=== PATIENT | female | born 1940 | race Caucasian/White ===

== ENCOUNTER 2016-08-20 20:15 | Emergency (ER) | payer BC ==
[2016-08-20 20:50] LABS: URINE APPEARANCE CLEAR; URINE BILIRUBIN NEGATIVE (NEGATIVE); URINE BLOOD LARGE (NEGATIVE); URINE COLOR YELLOW; URINE GLUCOSE (UA) NEGATIVE (NEGATIVE); URINE KETONE TRACE (NEGATIVE); URINE LEUKOCYTE ESTERASE LARGE (NEGATIVE); URINE NITRITE NEGATIVE (NEGATIVE)
--- NOTE | 2016-08-20 20:52 | Emergency Department Record ---
History of Present Illness - General Chief complaint: Female Urogenital Problem Stated complaint: UTI Time Seen by Provider: 08/20/16 20:28 Source: Patient Mode of Arrival: Ambulatory Limitations: No limitations - History of Present Illness Initial comments: 76 yo female presents to ED with a 2-day history of urinary frequency and urgency symptoms. Patient denies fevers, chills, nausea, or vomiting symptoms. Patient denies history of previous symptoms, but believes she may have a UTI. MD Complaint: Dysuria Onset/Timin -: Days(s) Location: Perineum Severity: Moderate Quality: Burning Consistency: Intermittent Improves with: None Worsens with: Urination Associated Symptoms: Dysuria - Related Data Home Medications Medication Instructions Recorded Confirmed Last Taken Bupropion HCl [Bupropion HCl Sr] 150 mg PO DAILY 11/20/15 08/20/16 08/20/16 Fosinopril Sodium [Monopril] 20 mg PO DAILY 11/20/15 08/20/16 08/20/16 Metoprolol Succinate [Toprol Xl] 100 mg PO DAILY 11/20/15 08/20/16 08/20/16 Oxybutynin Chloride [Ditropan] 5 mg PO TID 11/20/15 08/20/16 08/20/16 Simvastatin [Zocor] 40 mg PO DAILY 11/20/15 08/20/16 08/20/16 Rivaroxaban [Xarelto] 20 mg PO DAILY 08/20/16 08/20/16 08/20/16 Previous Rx's Medication Instructions Recorded Nitrofurantoin Catahoula [Macrobid] 100 mg PO BID #13 capsule 08/20/16 Phenazopyridine HCl [Pyridium] 200 mg PO TID #5 tab 08/20/16 Allergies Allergy/AdvReac Type Severity Reaction Status Date / Time No Known Drug Allergies Allergy Verified 11/20/15 12:04 Travel Screening - Travel/Exposure Within Last 30 Days Have you traveled within the last 30 days?: No - Travel Symptoms Symptom Screening: None Review of Systems Constitutional: Denies: Chills, Fever, Malaise, Night sweats Eyes: Denies: Eye discharge, Eye pain ENT: Denies: Congestion, Ear pain Respiratory: Denies: Cough, Dyspnea Cardiovascular: Denies: Chest pain, Dyspnea on exertion Endocrine: Denies: Fatigue, Heat or cold intolerance Gastrointestinal: Denies: Abdominal pain, Nausea, Vomiting Genitourinary: Reports: Dysuria, Frequency, Urgency. Denies: Retention Musculoskeletal: Denies: Arthralgia, Gout Skin: Denies: Bruising, Change in color Neurological: Denies: Abnormal gait, Confusion, Headache, Seizure Psychiatric: Denies: Anxiety Hematological/Lymphatic: Denies: Anemia, Blood Clots Past Medical History - SOCIAL HISTORY Smoking Status: Former smoker - RESPIRATORY Hx Respiratory Disorders: Yes Hx Pulmonary Embolism: Yes - CARDIOVASCULAR Hx Cardio Disorders: Yes Hx Deep Vein Thrombosis: Yes Hx Heart Attack: Yes Hx Hypertension: Yes - NEURO Hx Neuro Disorders: No - GI Hx GI Disorders: Yes Hx Reflux: Yes - Hx Genitourinary Disorders: No - ENDOCRINE Hx Endocrine Disorders: No - MUSCULOSKELETAL Hx Musculoskeletal Disorders: No - PSYCH Hx Psych Problems: No - HEMATOLOGY/ONCOLOGY Hx Hematology/Oncology Disorders: No Family Medical History Any Significant Family History?: Yes Hx Heart Disease: Mother, Brother/Sister Hx Resp Disorders: Father, Brother/Sister Physical Exam - General General Appearance: Alert, Oriented x3, Cooperative, No acute distress Limitations: No limitations - Head Head exam: Atraumatic, Normocephalic, Normal inspection Head exam detail: negative: Abrasion, Contusion, Luna's sign, General tenderness, Hematoma, Laceration - Eye Eye exam: Normal appearance. negative: Conjunctival injection, Periorbital swelling, Periorbital tenderness, Scleral icterus - ENT Ear exam: negative: Auricular hematoma, Auricular trauma Nasal Exam: negative: Active bleeding, Discharge, Dried blood, Foreign body Mouth exam: negative: Drooling, Laceration, Muffled voice, Tongue elevation - Neck Neck exam: Normal inspection. negative: Meningismus, Tenderness - Respiratory Respiratory exam: Normal lung sounds bilaterally. negative: Rales, Respiratory distress, Rhonchi, Stridor - Cardiovascular Cardiovascular Exam: Regular rate, Normal rhythm, Normal heart sounds - GI/Abdominal GI/Abdominal exam: Soft. negative: Rebound, Rigid, Tenderness - Rectal Rectal exam: Deferred - exam: Deferred - Extremities Extremities exam: Normal inspection. negative: Calf tenderness, Pedal edema, Tenderness - Back Back exam: Denies: CVA tenderness (R), CVA tenderness (L) - Neurological Neurological exam: Alert, Normal gait, Oriented X3 - Psychiatric Psychiatric exam: Normal affect, Normal mood - Skin Skin exam: Normal color. negative: Abrasion Type of lesion: negative: abrasion Course Vital Signs 08/20/16 20:32 Temperature 97.4 F L Pulse Rate 67 Respiratory 18 Rate Blood Pressure 135/82 Pulse Ox 91 L - Reevaluation(s) Reevaluation #1: 08/20/16 21:02 UA reviewed and appears c/w infection. Patient has no clinical symptoms indicative of ureteral calculi complicating her UTI sympotms. Patient is otherwise well appearing and appears stable for discharge with treatment for UTI. Disposition Disposition: Discharge Clinical Impression: UTI (urinary tract infection) Qualifiers: Urinary tract infection type: acute cystitis Hematuria presence: with hematuria Qualified Code(s): N30.01 - Acute cystitis with hematuria Disposition: Home, Self-Care Condition: (2) Stable Instructions: Urinary Tract Infection in Women (ED) Additional Instructions: Return to ED if your symptoms worsen or if you have any concerns. Macrobid and Pyridium as directed. Follow-up with your family doctor in 1-3 days as directed. Prescriptions: Nitrofurantoin Catahoula [Macrobid] 100 mg PO BID #13 capsule Phenazopyridine HCl [Pyridium] 200 mg PO TID #5 tab Forms: Patient Portal Access Time of Disposition: 21:05
[2016-08-20 20:53] LABS: URINE PROTEIN 300 mg/dL (NEGATIVE)
[2016-08-20 21:01] LABS: URINE BACTERIA 3+; URINE EPITHELIAL CELLS 0 - 2 (FEW)
[2016-08-20] MEDS ORDERED: NITROFURANTOIN MONO 100 MG CAPSULE PO ONE (21:05)
[2016-08-20] MEDS ORDERED: PHENAZOPYRIDINE HCL 95 MG TABLET PO ONE (21:05)
== END 2016-08-20 21:26 | disposition home or self-care (01) ==
LOC: ER 20:15
DX: N30.01 Acute cystitis with hematuria (principal); R30.0 Dysuria; I10 Essential (primary) hypertension; I25.2 Old myocardial infarction; Z87.891 Personal history of nicotine dependence
CPT/HCPCS: 81001; 99283

== ENCOUNTER 2018-02-24 18:23 | Emergency (ER) | payer BC, MEDICARE ==
--- NOTE | 2018-02-24 18:43 | Emergency Department Record ---
History of Present Illness - General Chief Complaint: Slurred speech Stated Complaint: SLURRED SPEACH Time Seen by Provider: 02/24/18 18:28 Source: Patient Mode of Arrival: Stretcher Limitations: No limitations - History of Present Illness Initial Comments: 77yo female presents by EMS with about 30 minutes of slurring of her speech. She was reportedly talking on the phone with a friend at time. The symptoms completely resolved. She was noted to be 88% on room air. She states she has been short of breath with activity over the last month. She has had some left leg pain as well. No swelling. She denies any chest pain, cough or fever. She denies any COPD or asthma. She did have a PE 2 years ago. She has been off her medication due to an insurance issue the last month. PCP is [facility] in [place]. She had an IN about 10 years ago with one stent. 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 Onset/Timin -: Week(s) Location: Speech Place: Home Quality: Other Improves With: None Worsens With: None On Anticoagulants: No (Off her Xarelto over a month) Associated Symptoms: Denies other symptoms Treatments Prior to Arrival: None - [place] Coma Scale Eye Response: (4) Open spontaneously Motor Response: (6) Obeys commands Verbal Response: (5) Oriented [place] Total: 15 - Related Data Home Medications: Home Medications Medication Instructions Recorded Confirmed Last Taken Donepezil HCl 5 mg PO DAILY 02/24/18 02/24/18 Unknown Allergies/Adverse Reactions: Allergies Allergy/AdvReac Type Severity Reaction Status Date / Time No Known Drug Allergies Allergy Verified 02/24/18 18:40 Travel Screening - Travel/Exposure Within Last 30 Days Have you traveled within the last 30 days?: No - Travel/Exposure Within Last Year Have you traveled outside the [place] in the last year?: No - Additonal Travel Details Have you been exposed to anyone with a communicable illness?: No - Travel Symptoms Symptom Screening: None Review of Systems Constitutional: Denies: Chills, Fever, Malaise, Weakness Eyes: Denies: Eye discharge, Eye pain ENT: Denies: Congestion, Throat pain Respiratory: Reports: Dyspnea. Denies: Cough, Wheezes Cardiovascular: Reports: Dyspnea on exertion. Denies: Chest pain, Edema, Palpitations, Syncope Endocrine: Denies: Fatigue Gastrointestinal: Denies: Abdominal pain, Diarrhea, Nausea, Vomiting Genitourinary: Denies: Dysuria, Urgency Musculoskeletal: Reports: As per HPI, Myalgia. Denies: Arthralgia, Back pain, Joint swelling Skin: Denies: Bruising, Change in color, Rash Neurological: Denies: Headache, Numbness, Weakness Psychiatric: Denies: Anxiety Hematological/Lymphatic: Reports: As per HPI, Blood Clots. Denies: Easy bleeding, Easy bruising Past Medical History - SOCIAL HISTORY Smoking Status: Former smoker Alcohol Use: None Drug Use: None - RESPIRATORY Hx Respiratory Disorders: Yes Hx Pulmonary Embolism: Yes - CARDIOVASCULAR Hx Cardio Disorders: Yes Hx Deep Vein Thrombosis: Yes Hx Heart Attack: Yes Hx Hypertension: Yes - NEURO Hx Neuro Disorders: No - GI Hx GI Disorders: Yes Hx Reflux: Yes - Hx Genitourinary Disorders: No - ENDOCRINE Hx Endocrine Disorders: No - MUSCULOSKELETAL Hx Musculoskeletal Disorders: No - PSYCH Hx Psych Problems: No - HEMATOLOGY/ONCOLOGY Hx Hematology/Oncology Disorders: No Family Medical History Any Significant Family History?: No Hx Heart Disease: Mother, Brother/Sister Hx Resp Disorders: Father, Brother/Sister Physical Exam - General General Appearance: Alert, Oriented x3, Cooperative, No acute distress Limitations: No limitations - Head Head exam: Atraumatic, Normal inspection - Eye Eye exam: Normal appearance, PERRL, EOMI. negative: Conjunctival injection, Scleral icterus - ENT ENT exam: Normal exam, Mucous membranes moist Ear exam: Normal external inspection Nasal Exam: Normal inspection Mouth exam: Normal external inspection Teeth exam: Normal inspection Throat exam: Normal inspection - Neck Neck exam: Normal inspection, Full ROM. negative: Tenderness - Respiratory Respiratory exam: Rhonchi (mild in the bases, ). negative: Accessory muscle use , Decreased breath sounds, Prolonged expiratory, Rales, Respiratory distress, Wheezes - Cardiovascular Cardiovascular Exam: Regular rate, Normal rhythm, Normal heart sounds. negative : Tachycardia Peripheral Pulses: 2+: Radial (R), Radial (L) - GI/Abdominal GI/Abdominal exam: Soft. negative: Tenderness - Rectal Rectal exam: Deferred - exam: Deferred - Extremities Extremities exam: Normal inspection, Full ROM, Normal capillary refill, Tenderness (left medial calf) - Back Back exam: Reports: Normal inspection, Full ROM. Denies: Muscle spasm, Rash noted, Tenderness - Neurological Neurological exam: Alert, Normal gait, Oriented X3, Reflexes normal - Psychiatric Psychiatric exam: Normal affect, Normal mood - Skin Skin exam: Dry, Intact, Normal color, Warm Stroke Assessment - NIH Stroke Scale 1a. Level of Consciousness: (0) Alert 1b. LOC Questions: (0) Answers Correctly 1c. LOC Commands: (0) Performs Tasks Correctly 2. Best Gaze: (0) Normal 3. Visual: (0) No Visual Loss 4. Facial Palsy: (0) Normal Symmetrical Movement 5a. Motor Arm Left: (0) No Drift 5b. Motor Arm Right: (0) No Drift 6a. Motor Leg Left: (0) No Drift 6b. Motor Leg Right: (0) No Drift 7. Limb Ataxia: (0) Absent 8. Sensory: (0) Normal 9. Best Language: (0) No Aphasia 10. Dysarthria: (0) Normal 11. Extinction/Inattention: (0) No Abnormality NIH Stoke Scale Total: 0 Course Vital Signs 02/24/18 18:24 Temperature 98.7 F Pulse Rate 98 H Respiratory 20 Rate Blood Pressure 141/82 Pulse Ox 88 L - Reevaluation(s) Reevaluation #1: Hypoxia noted on arrival NIH at arrival 0 02/24/18 18:44 02/24/18 18:47 EKG 1838 Sinus Rhythm Rate 92 Intervals Qtc [address] Inverted T waves V1-V6 02/24/18 19:23 Troponin indeterminant at 0.023 BNP 6968 CR 1.0 02/24/18 20:[address] scan was negative for acute process 02/24/18 20:13 The son notified my the patient is now having trouble with speech. On exam she has dysarthria with difficulty pronouncing words No drift or weakness of the arms or legs. [facility] called for Stroke Service 02/24/18 20:[address] Moreno of Stroke After review with the son He checked his phone He was called at 5:30pm. His neighbor can not confirm onset time putting her out of the window CTA pending. 02/24/18 20:30 Dr Moore of the ED accepts ED to ED 02/24/18 20:32 CT large bilateral PE's Central On recheck the speech has cleared. 02/24/18 20:35 I again discussed the CT findings with Dr Moreno. Heparin in this setting acceptable and recommended. NIH no 0 Medical Decision Making - Management Options MDM Management: Additional Work-up Planned (e.g. ADM/Transfer/OP Study) - Data Complexity MDM Data: Labs Ordered and/or Reviewed, X-Ray Ordered and/or Reviewed, EKG Ordered and/or Reviewed, Independent Visualization of Image, Tracing, or Specimen, Discussion of Test Results With Performing Physician, Decision to Obtain Old Record, Review and Summary of Old Record Discussed - Lab Data Result diagrams: 02/24/18 18:09 02/24/18 18:09 - EKG Data -: EKG Interpreted by Me Critical Care Time Critical Care Time: Yes Total Critical Care Time: 125 Disposition Disposition: Transfer Clinical Impression: TIA (transient ischemic attack), Pulmonary embolism Disposition: Acute Care Hospital Transfer Transfer To: [facility] Reason For Transfer: TIA, Pulmonary Emboli Accepting Physician: Oscar Moreno Time Discussed w/Accepting Physician: 20:35 Condition: (2) Stable Forms: Patient Portal Access Time of Disposition: 20:35 Quality - Quality Measures Quality Measures: N/A - Blood Pressure Screening Does Patient Have Any of the Following: No Blood Pressure Classification: Pre-Hypertensive BP Reading Systolic Measurement: 141 Diastolic Measurement: 82 Screening for High Blood Pressure: < Pre-Hypertensive BP, F/U Documented > [ G8950] Pre-Hypertensive Follow-up Interventions: Referral to alternative/primary care provider.
[2018-02-24 18:50] LABS: BASO % 0.4 % (0-6); EOS % 1.5 % (0-6); GRAN % 69.2 % (47-80); HEMATOCRIT 47.9 % (35.0-47.0); HEMOGLOBIN 15.8 gm/dl (11.6-16.0); LYMPH % 19.2 % (16-45); MEAN CELL VOLUME 88.5 fl (81-97); MEAN CORPUSCULAR HEMOGLOBIN 29.2 pg (27-33); MEAN PLATELET VOLUME 9.7 fl (7.4-10.4); MONO % 9.7 % (0-9); PLATELET COUNT 260 K/uL (130-400); RED BLOOD COUNT 5.41 M/uL (3.80-5.40); RED CELL DISTRIBUTION WIDTH 14.9 % (11.5-14.5); WHITE BLOOD COUNT W/O DIFF 9.2 K/uL (4.2-12.2)
[2018-02-24 19:03] LABS: INR 1.1; PARTIAL THROMBOPLASTIN TIME 26.7 SECONDS (24.5-39.1)
[2018-02-24 19:05] LABS: BILIRUBIN,TOTAL 0.5 mg/dL (0.2-1.0)
[2018-02-24 19:06] LABS: TOTAL PROTEIN 7.8 g/dL (6.6-8.7)
[2018-02-24 19:10] LABS: ALB/GLOB RATIO 1.1 (1.1-1.8)
[2018-02-24 19:22] LABS: URINE APPEARANCE CLEAR; URINE BILIRUBIN SMALL (NEGATIVE); URINE BLOOD NEGATIVE (NEGATIVE); URINE COLOR YELLOW; URINE GLUCOSE (UA) NEGATIVE (NEGATIVE); URINE KETONE TRACE (NEGATIVE); URINE LEUKOCYTE ESTERASE SMALL (NEGATIVE); URINE NITRITE NEGATIVE (NEGATIVE)
[2018-02-24 19:32] LABS: URINE RBC 0 - 2 (NONE SEEN); URINE WBC 16 - 20 (0-2/hpf)
[2018-02-24 19:33] LABS: URINE BACTERIA 1+
[2018-02-24] MEDS: HEPARIN SODIUM 1000 UNIT/1 ML 10ML VIAL IVP ONE (20:40)
[2018-02-24] MEDS: HEPARIN SODIUM/D5W 25,000 UNITS/500 ML BAG IV SCH (20:41)
[2018-02-24] MEDS: 0.9 % SODIUM CHLORIDE 1,000 ML BAG IV ONE (20:41)
--- NOTE | 2018-02-26 23:13 | CT SCAN REPORT ---
EXAM: CT SCAN HEAD WO CONTRAST HISTORY: MENTAL STATUS CHANGE. TECHNIQUE: Sequential axial images were obtained from the foramen magnum to the vertex without contrast administration. FINDINGS: The brain volume is normal. No large territorial infarct, hemorrhage , mass effect, or midline shift. No extraaxial fluid collection. The orbits, paranasal sinuses and mastoid air cells are normal. IMPRESSION: NO ACUTE INTRACRANIAL ABNORMALITY IS APPRECIATED. JOB NUMBER: [id number] MTDD
--- NOTE | 2018-02-26 23:21 | CT ANGIOGRAM REPORT ---
EXAM: CT ANGIOGRAM CHEST CTA w contrast HISTORY: DIFFICULTY IN BREATHING, SLURRED SPEECH. TECHNIQUE: CTA of the chest was performed after intravenous administration of 80 mL of Omnipaque-350 contrast material. Sagittal and coronal MIP images were performed on an independent workstation. FINDINGS: Large volume bilateral saddle emboli are present. Thoracic aorta appears normal. There is underlying interstitial lung disease with fibrosis. Cardiomegaly without pericardial effusion. The visualized upper abdominal structures are normal. IMPRESSION: 1. LARGE BILATERAL OCCLUSIVE SADDLE EMBOLI. 2. CARDIOMEGALY WITHOUT PERICARDIAL EFFUSION. 3. UNDERLYING INTERSTITIAL LUNG DISEASE WITH FIBROSIS. SMALL LEFT PLEURAL EFFUSION. JOB NUMBER: [id number] MTDD
== END 2018-02-24 20:55 | disposition short-term general hospital (02) ==
LOC: ER 18:23
DX: G45.9 Transient cerebral ischemic attack, unspecified (principal); I26.99 Other pulmonary embolism without acute cor pulmonale; R06.02 Shortness of breath; I10 Essential (primary) hypertension; I25.2 Old myocardial infarction; Z87.891 Personal history of nicotine dependence; Y92.009 Unspecified place in unspecified non-institutional (private) residence as the place of occurrence of the external cause; Z86.711 Personal history of pulmonary embolism
CPT/HCPCS: 99291 ×2; 96365; 96375; 85025; 85730; 85610; 80053; 81001; 84484; 83880; 71275; 70450; 93005; 93010; Q9967; J7030

== ENCOUNTER 2018-03-03 15:20 | Inpatient (IN) | payer MEDICARE ==
--- NOTE | 2018-03-03 15:47 | Emergency Department Record ---
History of Present Illness - General Chief Complaint: General Stated Complaint: NEEDS HER BLOOD CHECKED Time Seen by Provider: 03/03/18 15:24 Source: Patient Mode of Arrival: Ambulatory Limitations: No limitations - History of Present Illness Initial comments: The patient is here due to having her blood drawn today by a visiting nurse and being told to go to the ER due to her INR being 8. She was diagnosed with a PE 7 days ago and was discharged from the hospital 2 days ago on Coumadin. She is not sure of the dose. The patient denies any CP, SOB, ISA, or sweating. She does have a hx of COPD and her RA biox runs from 89-92% on room air. Onset/Timin -: Days(s) - [place] Coma Scale Eye Response: (4) Open spontaneously Motor Response: (6) Obeys commands - Related Data Allergies Allergy/AdvReac Type Severity Reaction Status Date / Time No Known Drug Allergies Allergy Verified 03/03/18 15:32 Travel Screening - Travel/Exposure Within Last 30 Days Have you traveled within the last 30 days?: No Review of Systems Constitutional: Denies: Chills, Fever Eyes: Denies: Eye discharge ENT: Denies: Congestion Respiratory: Denies: Cough, Dyspnea Past Medical History - SOCIAL HISTORY Smoking Status: Former smoker Alcohol Use: None Drug Use: None - RESPIRATORY Hx Respiratory Disorders: Yes Hx COPD: Yes Hx Pulmonary Embolism: Yes - CARDIOVASCULAR Hx Cardio Disorders: Yes Hx Deep Vein Thrombosis: Yes Hx Heart Attack: Yes Hx Hypertension: Yes - NEURO Hx Neuro Disorders: No - GI Hx GI Disorders: Yes Hx Reflux: Yes - Hx Genitourinary Disorders: No - ENDOCRINE Hx Endocrine Disorders: No - MUSCULOSKELETAL Hx Musculoskeletal Disorders: No - PSYCH Hx Psych Problems: No - HEMATOLOGY/ONCOLOGY Hx Hematology/Oncology Disorders: No Family Medical History Any Significant Family History?: Yes Hx Heart Disease: Mother, Brother/Sister Hx Resp Disorders: Father, Brother/Sister Physical Exam - General General Appearance: Alert, Oriented x3, Cooperative, No acute distress - Head Head exam: Atraumatic, Normocephalic, Normal inspection - Eye Eye exam: Normal appearance, PERRL - Neck Neck exam: Normal inspection, Full ROM. negative: Tenderness - Respiratory Respiratory exam: Normal lung sounds bilaterally. negative: Respiratory distress - Cardiovascular Cardiovascular Exam: Regular rate, Normal rhythm, Normal heart sounds - GI/Abdominal GI/Abdominal exam: Soft, Normal bowel sounds. negative: Tenderness - Extremities Extremities exam: Normal inspection, Full ROM, Normal capillary refill. negative: Tenderness - Neurological Neurological exam: Alert. negative: Motor sensory deficit Course Vital Signs 03/03/18 15:28 Temperature 97.5 F L Pulse Rate 91 H Respiratory 18 Rate Blood Pressure 133/70 Pulse Ox 90 L - Reevaluation(s) Reevaluation #1: After talking with the patient and friend in the room it appears the patient has been taking 10 mg of Coumadin daily instead of the 5 mg dose daily that she is supposed to be on. 03/03/18 15:53 Reevaluation #2: The patient is doing very well at this time but due to the INR being >10 I did recommend a short stay admission. We will give the patient oral Vitamin K and stop her Coumadin and Lovenox. We will recheck them in the AM prior to restarting. 03/03/18 16:39 Reevaluation #3: I did discuss the case with Dr. Yap and she does agree to the plan. 03/03/18 16:40 Medical Decision Making - Data Complexity MDM Data: Labs Ordered and/or Reviewed - Lab Data Result diagrams: 03/03/18 13:44 03/03/18 13:44 Disposition Disposition: Admit Clinical Impression: Coagulopathy Disposition: Still a Patient at [facility] Decision to Admit: Admit from ER Decision to Admit Date: 03/03/18 Decision to Admit Time: 16:41 Accepting Physician: Marquis Time Discussed w/Accepting Physician: 16:41 Condition: (2) Stable Forms: Patient Portal Access Time of Disposition: 16:41 Quality - Quality Measures Quality Measures: N/A - Blood Pressure Screening View Details: Yes Does Patient Have Any of the Following: No Blood Pressure Classification: Pre-Hypertensive BP Reading Systolic Measurement: 133 Diastolic Measurement: 70 Screening for High Blood Pressure: < Pre-Hypertensive BP, F/U Documented > [ G8950] Pre-Hypertensive Follow-up Interventions: Referral to alternative/primary care provider.
[2018-03-03 15:58] LABS: BASO % 0.6 % (0-6); EOS % 4.2 % (0-6); HEMATOCRIT 45.2 % (35.0-47.0); HEMOGLOBIN 14.4 gm/dl (11.6-16.0); LYMPH % 22.6 % (16-45); MEAN CORPUSCULAR HEMOGLOBIN 28.3 pg (27-33); MEAN CORPUSCULAR HGB CONC 31.9 g/dl (32-36); MEAN PLATELET VOLUME 9.4 fl (7.4-10.4); MONO % 7.6 % (0-9); PLATELET COUNT 338 K/uL (130-400); RED BLOOD COUNT 5.08 M/uL (3.80-5.40); RED CELL DISTRIBUTION WIDTH 14.5 % (11.5-14.5); WHITE BLOOD COUNT W/O DIFF 6.7 K/uL (4.2-12.2)
[2018-03-03 16:24] LABS: CREATININE 1.1 mg/dL (0.5-0.9)
[2018-03-03] MEDS ORDERED: PHYTONADIONE 10 MG/ML AMPUL PO ONE (16:31)
[2018-03-03] MEDS ORDERED: ACETAMINOPHEN 500 MG TABLET PO PRN (18:14)
[2018-03-03] MEDS ORDERED: PNEUM 13-VAL/PF 0.5 ML IM ONE (19:12)
[2018-03-03] MEDS: OXYBUTYNIN CHLORIDE 5MG TABLET PO SCH (21:45)
[2018-03-04 06:58] LABS: BASO % 0.3 % (0-6); EOS % 5.1 % (0-6); GRAN % 56.4 % (47-80); HEMATOCRIT 43.4 % (35.0-47.0); HEMOGLOBIN 13.7 gm/dl (11.6-16.0); LYMPH % 30.8 % (16-45); MEAN CELL VOLUME 89.5 fl (81-97); MEAN CORPUSCULAR HEMOGLOBIN 28.2 pg (27-33); MEAN CORPUSCULAR HGB CONC 31.6 g/dl (32-36); MEAN PLATELET VOLUME 9.4 fl (7.4-10.4); MONO % 7.4 % (0-9); PLATELET COUNT 285 K/uL (130-400); RED BLOOD COUNT 4.85 M/uL (3.80-5.40); RED CELL DISTRIBUTION WIDTH 14.4 % (11.5-14.5)
[2018-03-04 07:15] LABS: PROTHROMBIN TIME (PATIENT) 20.1 SECONDS (9.5-12.1)
[2018-03-04] MEDS: METOPROLOL SUCC 50 MG TABLET PO SCH (09:13)
[2018-03-04] MEDS: DONEPEZIL HCL 5 MG TABLET PO SCH (09:13)
[2018-03-04] MEDS: FOSINOPRIL SODIUM 20 MG TABLET PO SCH (09:14)
[2018-03-04] MEDS: OXYBUTYNIN CHLORIDE 5MG TABLET PO SCH ×3 (09:14→22:43)
[2018-03-04] MEDS: ENOXAPARIN 80 MG/0.8 ML SYR SQ SCH ×2 (11:13→22:43)
[2018-03-04] MEDS: WARFARIN 5 MG TAB PO SCH (11:14)
--- NOTE | 2018-03-04 16:04 | History & Physical ---
History of Present Illness - Date of Service Date of Service for History & Physical: 03/04/18 - History of Present Illness Admitting Diagnosis: 1. Acute Coagulopathy History of Present Illness: PMHx: COPD, Pulmonary embolus, DVT, HTN, MO, GERD Pt is a very poor historian and is unsure why she was even brought to the ED in the first place. She states she was feeling fine. Pt states that she forgot she took her pills and ended up taking them twice. She states that her neighbor did not administer them for her. This is different than what Dr. Hurd stated. Dr. Hurd stated that her neighbor/ friend was administering the medication as 5mg BID. On the [facility] discharge summary and confirming with the pharmacy that dispensed the medication, it says that she was supposed to take 5mg daily. According to ER records the pt went to the ED because the visiting nurse noted that the pt's INR was 8. She was diagnosed with a PE 7 days ago and was discharged from the [facility] 2 days ago on Coumadin for her PE. She was also discharged on home O2, which according to hospital visits - are said to be required at all times. When asking the pt she states that she has not worn oxygen in several years. It was started several years ago for her COPD only. The patient denies any CP, SOB, ISA, or sweating. She also denies any bleeding from anywhere. Vitals:T 97.5, P 91, BP 133/ 70, 90% O2 RA Significant labs: PT 200, INR too high to report, APTT 42, Hb normal. Pt was admitted for monitoring of INR while vit K given for reversal of coumadin and to restart pt on correct dose. Travel Screening - Travel/Exposure Within Last 30 Days Have you traveled within the last 30 days?: No - Travel/Exposure Within Last Year Have you traveled outside the [place] in the last year?: No - Additonal Travel Details Have you been exposed to anyone with a communicable illness?: No - Travel Symptoms Symptom Screening: None Review of Systems Constitutional: Denies: Chills, Fever, Malaise, Night sweats, Weakness Eyes: Denies: Eye discharge, Eye pain, Vision change ENT: Denies: Congestion, Ear pain, Throat pain Respiratory: Denies: Cough, Dyspnea, Hemoptysis, Wheezes Cardiovascular: Denies: Chest pain, Dyspnea on exertion, Edema, Murmurs, Palpitations Endocrine: Denies: Polydipsia, Polyuria Gastrointestinal: Denies: Abdominal pain, Constipation, Diarrhea, Hematemesis, Hematochezia, Melena, Nausea, Vomiting Genitourinary: Denies: Incontinence, Retention, Urgency Musculoskeletal: Denies: Myalgia Skin: Denies: Bruising, Change in color Hematological/Lymphatic: Reports: Blood Clots. Denies: Easy bleeding, Easy bruising Past Medical History - SOCIAL HISTORY Smoking Status: Former smoker Alcohol Use: Rare Drug Use: None - RESPIRATORY Hx Respiratory Disorders: Yes Hx COPD: Yes Hx Pulmonary Embolism: Yes - CARDIOVASCULAR Hx Cardio Disorders: Yes Hx Deep Vein Thrombosis: Yes Hx Heart Attack: Yes Hx Hypertension: Yes - NEURO Hx Neuro Disorders: No - GI Hx GI Disorders: Yes Hx Reflux: Yes - Hx Genitourinary Disorders: No - ENDOCRINE Hx Endocrine Disorders: No - MUSCULOSKELETAL Hx Musculoskeletal Disorders: No - PSYCH Hx Psych Problems: No - HEMATOLOGY/ONCOLOGY Hx Hematology/Oncology Disorders: No Family Medical History Any Significant Family History?: Yes Hx Heart Disease: Mother, Brother/Sister Hx Resp Disorders: Father, Brother/Sister H&P Meds/Allergies - Allergies Allergies: Allergies Allergy/AdvReac Type Severity Reaction Status Date / Time No Known Drug Allergies Allergy Verified 03/03/18 15:32 - Active Medications Active Medications: Current Medications Acetaminophen (Tylenol 500mg Tab) 500 mg PO Q6H PRN PRN Reason: PAIN - MILD(1-4)/FEVER Donepezil HCl (Aricept) 5 mg PO DAILY [facility] Last Admin: 03/04/18 09:13 Dose: 5 mg Enoxaparin Sodium (Lovenox) 80 mg SQ BID [facility] Last Admin: 03/04/18 11:13 Dose: 80 mg Fosinopril Sodium (Monopril) 20 mg PO DAILY [facility] Last Admin: 03/04/18 09:14 Dose: 20 mg Metoprolol Succinate (Toprol Xl) 100 mg PO DAILY [facility] Last Admin: 03/04/18 09:13 Dose: 100 mg Oxybutynin Chloride (Ditropan) 5 mg PO TID [facility] Last Admin: 03/04/18 09:14 Dose: 5 mg Warfarin Sodium (Coumadin) 5 mg PO DAILY [facility] Last Admin: 12/07/18 11:14 Dose: 5 mg Physical Exam - Vital Signs Vital Signs: Vital Signs - Last 24 Hrs Temp Pulse Pulse Resp BP Pulse Ox 03/04/18 12:35 53 L 16 93 L 03/04/18 09:00 80 16 03/04/18 08:00 97.5 F L 79 18 137/67 92 L 03/04/18 04:00 97.9 F 80 16 146/80 92 L 03/04/18 00:00 98.3 F 75 17 176/57 93 L 03/03/18 20:30 97 03/03/18 20:00 98.1 F 73 17 111/58 100 03/03/18 18:28 81 18 03/03/18 18:14 97.9 F 77 16 113/65 88 L 03/03/18 17:10 96 03/03/18 16:57 81 18 123/75 - General General Appearance: Alert, Oriented x3, Cooperative, No acute distress Limitations: No limitations - Head Head exam: Atraumatic, Normocephalic, Normal inspection - Eye Eye exam: Normal appearance, PERRL, EOMI. negative: Conjunctival injection - ENT ENT exam: Normal exam Ear exam: Normal external inspection Nasal Exam: Normal inspection Mouth exam: Normal external inspection Teeth exam: Normal inspection Throat exam: Normal inspection - Neck Neck exam: Normal inspection, Full ROM. negative: Tenderness - Respiratory Respiratory exam: Rales (bilaterally. ). negative: Normal lung sounds bilaterally, Decreased breath sounds, Respiratory distress, Rhonchi, Wheezes - Cardiovascular Cardiovascular Exam: Regular rate, Normal rhythm, Normal heart sounds - GI/Abdominal GI/Abdominal exam: Soft, Normal bowel sounds. negative: Distended, Hypoactive bowel sounds, Tenderness - Rectal Rectal exam: Deferred - exam: Deferred - Extremities Extremities exam: Normal inspection, Full ROM. negative: Pedal edema, Tenderness - Neurological Neurological exam: Alert, Oriented X3, Other (pt frequently forgets discussions we had just 20 minutes ago but is very normal during the actual discussion. Forgetfulness is chronic for her). negative: Motor sensory deficit - Psychiatric Psychiatric exam: Normal affect. negative: Agitated, Depressed - Skin Skin exam: negative: Abrasion, Cyanosis, Petechiae Results - Labs Result Diagrams: 03/04/18 06:19 03/03/18 13:44 Labs Last 24 Hours: Laboratory Results - last 24 hr 03/03/18 03/03/18 03/03/18 13:44 13:44 13:44 WBC 6.7 RBC 5.08 Hgb 14.4 Hct 45.2 MCV 89.0 MCH 28.3 MCHC 31.9 L RDW 14.5 Plt Count 338 MPV 9.4 Gran % 65.0 Lymphocytes % 22.6 Monocytes % 7.6 Eosinophils % 4.2 Basophils % 0.6 PT 200.0 H* INR Not Reportable APTT 42.0 H Sodium 144 Potassium 4.0 Chloride 102 Carbon Dioxide 29.0 Anion Gap 13.0 BUN 20 Creatinine 1.1 H Estimated GFR 51 Random Glucose 116 H Calcium 10.2 03/04/18 03/04/18 03/04/18 06:19 06:19 06:19 WBC 7.0 RBC 4.85 Hgb 13.7 Hct 43.4 MCV 89.5 MCH 28.2 MCHC 31.6 L RDW 14.4 Plt Count 285 MPV 9.4 Gran % 56.4 Lymphocytes % 30.8 Monocytes % 7.4 Eosinophils % 5.1 Basophils % 0.3 PT 20.1 H INR 2.0 APTT 33.0 Sodium Potassium Chloride Carbon Dioxide Anion Gap BUN Creatinine Estimated GFR Random Glucose Calcium VTE H&P Assessment - Risk for VTE Risk for VTE: Yes Risk Level: High (already on coumadin) Risk Assessment Date: 03/04/18 Risk Assessment Time: 16:12 VTE Orders Placed or Will Be Placed: Yes Plan - Inpatient Certification Inpatient Certification: Admit to inpatient care: Based on my medical assessment, after consideration of patient's risk factors (age, co-morbidities and patient presenting symptoms and acuity), I expect that this patient will remain in the hospital greater than or equal to two midnights and that the services needed warrant inpatient care because: Patient Risk Factors: [age, and risk of serious injury if untreated, need for monitoring] Estimated length of stay: [3] The patient may reasonably be expected to be discharged or transferred to a hospital within 96 hours after admission to [facility]. Services needed: [case management, pharmacy to dose anticoagulation, monitoring for blood clot/ bleeding. ] Post hospital care (if known): [] I certify that my determination is in accordance with my understanding of Medicare requirements for reasonable and necessary inpatient services. 03/04/18 16:14 - Detailed Diagnosis and Plan (1) Coagulopathy Current Visit: Yes Status: Acute Base Code: D68.9 - COAGULATION DEFECT, UNSPECIFIED Priority: High Comment: - Vit K given - INR back down to 2 but will likely keep going down. - Lovenox to help prevent INR from going to far down and increasing clotting given recent PE. - Pharmacy to dose warfarin - Pt does not seem suitable to be administering own medications given some element of dementia. Especially her own antocoagulation medications. - Will speak with son regarding placement. - Case managment on board as well. - Currently pt is asymptomatic. (2) Pulmonary embolism Current Visit: No Status: Acute Qualifiers: Pulmonary embolism type: saddle Chronicity: acute Base Code: I26.99 - OTHER PULMONARY EMBOLISM WITHOUT ACUTE COR PULMONALE Priority: High Comment: - Will keep pt on O2 as prescribed. - Will titrate down/up as needed. (3) COPD (chronic obstructive pulmonary disease) Current Visit: Yes Status: Chronic Qualifiers: COPD type: unspecified COPD Qualified Code(s): J44.9 - Chronic obstructive pulmonary disease, unspecified Base Code: J44.9 - CHRONIC OBSTRUCTIVE PULMONARY DISEASE, UNSPECIFIED Priority : Medium Comment: - Respiratory to give treatments PRN. (4) Full code status Current Visit: Yes Status: Acute Base Code: Z78.9 - OTHER SPECIFIED HEALTH STATUS Priority: High - Disposition Pending placement and INR back to optimal range.
[2018-03-04] MEDS ORDERED: IPRATROPIUM/ALBUTEROL (0.5MG/3MG) NEB INH PRN (16:22)
[2018-03-04] MEDS ORDERED: DILTIAZEM 25MG/5ML VIAL IV ONE ×2 (18:43)
[2018-03-05 07:01] LABS: INR 2.2; PROTHROMBIN TIME (PATIENT) 21.2 SECONDS (9.5-12.1)
[2018-03-05] MEDS: WARFARIN 5 MG TAB PO SCH (09:56)
[2018-03-05] MEDS: FOSINOPRIL SODIUM 20 MG TABLET PO SCH (09:56)
[2018-03-05] MEDS: OXYBUTYNIN CHLORIDE 5MG TABLET PO SCH ×3 (09:56→21:08)
[2018-03-05] MEDS: DONEPEZIL HCL 5 MG TABLET PO SCH (09:56)
[2018-03-05] MEDS: METOPROLOL SUCC 50 MG TABLET PO SCH (09:56)
[2018-03-05] MEDS: ENOXAPARIN 80 MG/0.8 ML SYR SQ SCH (09:57)
--- NOTE | 2018-03-05 10:25 | Physician Progress Note ---
Subjective - Date Date of Physician Progress Note: 03/05/18 - Subjective Subjective Comment: Pt doing well today no complaints. Had 1 BM yesterday. No evidence of bleeding anywhere. Objective - Vital Signs Vital Signs: Vital Signs - Last 24 Hrs Temp Pulse Pulse Resp BP Pulse Ox 03/05/18 08:00 97 F L 83 18 122/73 100 03/05/18 06:30 92 L 03/05/18 04:00 98.1 F 73 17 128/76 91 L 03/05/18 00:00 98.0 F 70 16 110/37 96 03/04/18 16:00 97.7 F 65 18 104/77 98 03/04/18 12:35 53 L 16 93 L - General General Appearance: Alert, Oriented x3, Cooperative, No acute distress Limitations: No limitations - Head Head exam: Atraumatic, Normocephalic, Normal inspection - Eye Eye exam: Normal appearance, EOMI. negative: Conjunctival injection - ENT ENT exam: Normal exam Ear exam: Normal external inspection Nasal Exam: Normal inspection - Neck Neck exam: Normal inspection, Full ROM - Respiratory Respiratory exam: Rales (bilaterally. ). negative: Normal lung sounds bilaterally, Decreased breath sounds, Respiratory distress, Rhonchi, Wheezes - Cardiovascular Cardiovascular Exam: Regular rate, Normal rhythm, Normal heart sounds - GI/Abdominal GI/Abdominal exam: Soft, Normal bowel sounds. negative: Distended, Hypoactive bowel sounds, Tenderness - Rectal Rectal exam: Deferred - exam: Deferred - Extremities Extremities exam: Normal inspection, Full ROM. negative: Pedal edema, Tenderness - Neurological Neurological exam: Alert, Oriented X3. negative: Motor sensory deficit - Psychiatric Psychiatric exam: Normal affect. negative: Agitated, Depressed - Skin Skin exam: negative: Abrasion, Cyanosis, Petechiae Assessment and Plan - Assessment and Plan (1) Coagulopathy Current Visit: Yes Status: Acute Base Code: D68.9 - COAGULATION DEFECT, UNSPECIFIED Priority: High Comment: - Vit K given in ED - Lovenox given yesterday to help prevent INR from going to far down and increasing clotting given recent PE. D/C'd today given that INR remained in goal range, rec by pharmacy. - Pharmacy to dose warfarin - Recheck INR in AM - Pt does not seem suitable to be administering own medications given some element of dementia. Especially her own antocoagulation medications. - Will speak with son regarding placement. - Case managment on board as well. - Currently pt is asymptomatic. (2) Pulmonary embolism Current Visit: No Status: Acute Qualifiers: Pulmonary embolism type: saddle Chronicity: acute Base Code: I26.99 - OTHER PULMONARY EMBOLISM WITHOUT ACUTE COR PULMONALE Priority: High Comment: - Will keep pt on O2 as prescribed. - Will titrate down/up as needed. (3) COPD (chronic obstructive pulmonary disease) Current Visit: Yes Status: Chronic Qualifiers: COPD type: unspecified COPD Qualified Code(s): J44.9 - Chronic obstructive pulmonary disease, unspecified Base Code: J44.9 - CHRONIC OBSTRUCTIVE PULMONARY DISEASE, UNSPECIFIED Priority : Medium Comment: - Respiratory to give treatments PRN. (4) Full code status Current Visit: Yes Status: Acute Base Code: Z78.9 - OTHER SPECIFIED HEALTH STATUS Priority: High - Disposition Disposition: Pending placement and INR back to optimal range. Results - Labs Result Diagrams: 03/04/18 06:19 03/03/18 13:44 Labs Last 24 Hours: Laboratory Results - last 24 hr 03/05/18 06:00 PT 21.2 H INR 2.2 DVT/PE Assessment - Risk for VTE Risk for VTE: No Risk Level: High (already on coumadin) Risk Assessment Date: 03/04/18 Risk Assessment Time: 16:12 VTE Orders Placed or Will Be Placed: Yes - Active Medicaitons Current Medications: Current Medications Acetaminophen (Tylenol 500mg Tab) 500 mg PO Q6H PRN PRN Reason: PAIN - MILD(1-4)/FEVER Albuterol/Ipratropium (Duoneb) 3 ml INH RESP.Q4H PRN PRN Reason: WHEEZING Donepezil HCl (Aricept) 5 mg PO DAILY [facility] Last Admin: 03/05/18 09:56 Dose: 5 mg Fosinopril Sodium (Monopril) 20 mg PO DAILY [facility] Last Admin: 03/05/18 09:56 Dose: 20 mg Metoprolol Succinate (Toprol Xl) 100 mg PO DAILY [facility] Last Admin: 03/05/18 09:56 Dose: 100 mg Oxybutynin Chloride (Ditropan) 5 mg PO TID [facility] Last Admin: 03/05/18 09:56 Dose: 5 mg Warfarin Sodium (Coumadin) 5 mg PO DAILY [facility] Last Admin: 03/05/18 09:56 Dose: 5 mg AMI Plan - Labs Result Diagrams: 03/04/18 06:19 03/03/18 13:44
--- NOTE | 2018-03-05 10:28 | Inpatient Certification ---
Inpatient Certification Admit to inpatient care: Based on my medical assessment, after consideration of patient's risk factors (age, co-morbidities and patient presenting symptoms and acuity), I expect that this patient will remain in the hospital greater than or equal to two midnights and that the services needed warrant inpatient care because: Patient Risk Factors: [age, need for oxygen, dementia, acuity of condition] Estimated length of stay: [3] The patient may reasonably be expected to be discharged or transferred to a hospital within 96 hours after admission to [facility]. Services needed: [pharmacy, case management] Post hospital care (if known): [] I certify that my determination is in accordance with my understanding of Medicare requirements for reasonable and necessary inpatient services. 03/05/18 10:27
[2018-03-06 06:42] LABS: INR 4.2
[2018-03-06 06:44] LABS: PROTHROMBIN TIME (PATIENT) 40.3 SECONDS (9.5-12.1)
--- NOTE | 2018-03-06 10:22 | Physician Progress Note ---
Subjective - Date Date of Physician Progress Note: 03/06/18 - Subjective Subjective Comment: Pt is agitated because she wants to go home. Explained that we need to talk with her family regarding living and medication situation and her INR is above normal again. She denies any symptoms or complaints. Objective - Vital Signs Vital Signs: Vital Signs - Last 24 Hrs Temp Pulse Resp BP Pulse Ox 03/06/18 09:00 12 03/06/18 08:00 97.5 F L 75 18 134/71 97 03/06/18 04:00 98.6 F 72 16 114/73 95 03/05/18 20:00 97.9 F 58 L 17 110/59 91 L 03/05/18 16:00 97.3 F L 54 L 18 132/57 100 - General General Appearance: Alert, Oriented x3, Cooperative, No acute distress Limitations: No limitations - Head Head exam: Atraumatic, Normocephalic, Normal inspection - Eye Eye exam: Normal appearance, EOMI. negative: Conjunctival injection - ENT ENT exam: Normal exam Ear exam: Normal external inspection Nasal Exam: Normal inspection Mouth exam: Normal external inspection Teeth exam: Normal inspection Throat exam: Normal inspection - Neck Neck exam: Normal inspection, Full ROM - Respiratory Respiratory exam: Rales (bilaterally. ). negative: Normal lung sounds bilaterally, Decreased breath sounds, Respiratory distress, Rhonchi, Wheezes - Cardiovascular Cardiovascular Exam: Regular rate, Normal rhythm, Normal heart sounds - GI/Abdominal GI/Abdominal exam: Soft, Normal bowel sounds. negative: Distended, Hypoactive bowel sounds, Tenderness - Rectal Rectal exam: Deferred - exam: Deferred - Extremities Extremities exam: Normal inspection, Full ROM. negative: Pedal edema, Tenderness - Neurological Neurological exam: Alert, Oriented X3. negative: Motor sensory deficit - Psychiatric Psychiatric exam: Normal affect. negative: Agitated, Depressed - Skin Skin exam: negative: Abrasion, Cyanosis, Petechiae Assessment and Plan - Assessment and Plan (1) Coagulopathy Current Visit: Yes Status: Acute Base Code: D68.9 - COAGULATION DEFECT, UNSPECIFIED Priority: High Comment: - Vit K given in ED - Lovenox given 2 days ago to help prevent INR from going to far down and increasing clotting given recent PE. D/C'd yday given that INR remained in goal range, rec by pharmacy. - Pharmacy to dose warfarin. Held today given that INR 4.2. - Recheck INR in AM - Pt does not seem suitable to be administering own medications given some element of dementia. Especially her own antocoagulation medications. - Will speak with son regarding placement. - Case managment on board as well. - Currently pt is asymptomatic. (2) Pulmonary embolism Current Visit: No Status: Acute Qualifiers: Pulmonary embolism type: saddle Chronicity: acute Base Code: I26.99 - OTHER PULMONARY EMBOLISM WITHOUT ACUTE COR PULMONALE Priority: High Comment: - Will keep pt on O2 as prescribed. - Will titrate down/up as needed. (3) COPD (chronic obstructive pulmonary disease) Current Visit: Yes Status: Chronic Qualifiers: COPD type: unspecified COPD Qualified Code(s): J44.9 - Chronic obstructive pulmonary disease, unspecified Base Code: J44.9 - CHRONIC OBSTRUCTIVE PULMONARY DISEASE, UNSPECIFIED Priority : Medium Comment: - Respiratory to give treatments PRN. (4) Full code status Current Visit: Yes Status: Acute Base Code: Z78.9 - OTHER SPECIFIED HEALTH STATUS Priority: High - Disposition Disposition: Pending placement and INR back to optimal range. Results - Labs Result Diagrams: 03/04/18 06:19 03/03/18 13:44 Labs Last 24 Hours: Laboratory Results - last 24 hr 03/06/18 05:50 PT 40.3 H* INR 4.2 DVT/PE Assessment - Risk for VTE Risk for VTE: No Risk Level: High (already on coumadin) Risk Assessment Date: 03/04/18 Risk Assessment Time: 16:12 VTE Orders Placed or Will Be Placed: Yes - Active Medicaitons Current Medications: Current Medications Acetaminophen (Tylenol 500mg Tab) 500 mg PO Q6H PRN PRN Reason: PAIN - MILD(1-4)/FEVER Albuterol/Ipratropium (Duoneb) 3 ml INH RESP.Q4H PRN PRN Reason: WHEEZING Donepezil HCl (Aricept) 5 mg PO DAILY [facility] Last Admin: 03/05/18 09:56 Dose: 5 mg Fosinopril Sodium (Monopril) 20 mg PO DAILY [facility] Last Admin: 03/05/18 09:56 Dose: 20 mg Metoprolol Succinate (Toprol Xl) 100 mg PO DAILY [facility] Last Admin: 03/05/18 09:56 Dose: 100 mg Oxybutynin Chloride (Ditropan) 5 mg PO TID [facility] Last Admin: 03/05/18 21:08 Dose: 5 mg Warfarin Sodium (Coumadin) 5 mg PO DAILY [facility] Last Admin: 03/05/18 09:56 Dose: 5 mg AMI Plan - Labs Result Diagrams: 03/04/18 06:19 03/03/18 13:44
[2018-03-06] MEDS: FOSINOPRIL SODIUM 20 MG TABLET PO SCH (11:36)
[2018-03-06] MEDS: DONEPEZIL HCL 5 MG TABLET PO SCH (11:37)
[2018-03-06] MEDS: OXYBUTYNIN CHLORIDE 5MG TABLET PO SCH ×3 (11:37→21:21)
[2018-03-06] MEDS: METOPROLOL SUCC 50 MG TABLET PO SCH (11:37)
[2018-03-07 07:16] LABS: INR 3.4; PROTHROMBIN TIME (PATIENT) 33.5 SECONDS (9.5-12.1)
--- NOTE | 2018-03-07 07:23 | RADIOLOGY REPORT ---
EXAM: CHEST, TWO VIEWS HISTORY: DIFFICULTY BREATHING. TECHNIQUE: Frontal and lateral views of the chest were performed. Comparison: 11/20/15. FINDINGS: The heart size is normal. Chronic underlying interstitial lung disease. There is likely a superimposed infiltrate. Pleural effusion present. The osseous structures are normal. IMPRESSION: CHRONIC UNDERLYING INTERSTITIAL LUNG DISEASE. NO SUPERIMPOSED INFILTRATE IS APPRECIATED. JOB NUMBER: [id number] MTDD
[2018-03-07] MEDS: OXYBUTYNIN CHLORIDE 5MG TABLET PO SCH (09:51)
[2018-03-07] MEDS: DONEPEZIL HCL 5 MG TABLET PO SCH (09:51)
[2018-03-07] MEDS: METOPROLOL SUCC 50 MG TABLET PO SCH (09:51)
[2018-03-07] MEDS: FOSINOPRIL SODIUM 20 MG TABLET PO SCH (09:52)
--- NOTE | 2018-03-07 10:21 | Discharge Summary ---
Providers Discharge Summary Date: 03/07/18 Date of admission: 03/04/18 09:59 Expected Date of Discharge: 03/07/18 Attending physician: STORM LANGSTON Primary care physician: ZULEMA ROUSSEAU M.D. Consults: Consult Orders 03/04/18 06:54 Consult - Case Management Now Comment: Reason For Exam: needs assist with medication management Physical Exam - Vital Signs Vital Signs: Vital Signs - Last 24 Hrs Temp Pulse Resp BP Pulse Ox 03/07/18 10:15 97 03/07/18 09:58 61 18 117/57 95 03/07/18 09:00 61 18 03/07/18 04:00 99.2 F 68 17 118/61 96 03/06/18 20:00 98.4 F 55 L 16 118/69 95 03/06/18 17:22 94 L 03/06/18 11:48 97.9 F 55 L 18 127/57 99 - General General Appearance: Alert, Oriented x3, Cooperative, No acute distress Limitations: No limitations - Head Head exam: Atraumatic, Normocephalic, Normal inspection - Eye Eye exam: Normal appearance, EOMI. negative: Conjunctival injection - ENT ENT exam: Normal exam Ear exam: Normal external inspection Nasal Exam: Normal inspection Mouth exam: Normal external inspection Teeth exam: Normal inspection Throat exam: Normal inspection - Neck Neck exam: Normal inspection, Full ROM - Respiratory Respiratory exam: Rales (chronic ). negative: Normal lung sounds bilaterally, Decreased breath sounds, Respiratory distress, Rhonchi, Wheezes - Cardiovascular Cardiovascular Exam: Regular rate, Normal rhythm, Normal heart sounds - GI/Abdominal GI/Abdominal exam: Soft, Normal bowel sounds. negative: Distended, Hypoactive bowel sounds, Tenderness - Rectal Rectal exam: Deferred - exam: Deferred - Extremities Extremities exam: Normal inspection, Full ROM. negative: Pedal edema, Tenderness - Neurological Neurological exam: Alert, Oriented X3. negative: Motor sensory deficit - Psychiatric Psychiatric exam: Normal affect. negative: Agitated, Depressed - Skin Skin exam: negative: Abrasion, Cyanosis, Petechiae Hospitalization - Hospitalization Admission Diagnosis: 1. Acute Coagulopathy - Problem List/Discharge Diagnosis (1) Coagulopathy Current Visit: Yes Status: Acute Base Code: D68.9 - COAGULATION DEFECT, UNSPECIFIED Comment: - Vit K given in ED - INR 3.4 today. - Coumadin dose held. - Per pharmacy, reduce daily dosage to 2.5mg daily starting tomorrow. - INR to be done by home nursing daily until normalized between 2-3. - Spoke with PCP and he agrees with the plan. - F/u With PCP scheduled in 2 days. (2) Pulmonary embolism Current Visit: No Status: Acute Discharge Diagnosis: Pulmonary embolism type: saddle Chronicity: acute Base Code: I26.99 - OTHER PULMONARY EMBOLISM WITHOUT ACUTE COR PULMONALE Comment: - Will keep pt on O2 as prescribed, currently requiring 2L NC. (3) COPD (chronic obstructive pulmonary disease) Current Visit: Yes Status: Chronic Discharge Diagnosis: COPD type: unspecified COPD Qualified Code(s): J44.9 - Chronic obstructive pulmonary disease, unspecified Base Code: J44.9 - CHRONIC OBSTRUCTIVE PULMONARY DISEASE, UNSPECIFIED Comment : - Respiratory to give treatments PRN. (4) Full code status Current Visit: Yes Status: Acute Base Code: Z78.9 - OTHER SPECIFIED HEALTH STATUS - Disposition Home, son to administer meds only. - Hospitalization Course Hospital Course: PMHx: COPD, Pulmonary embolus, DVT, HTN, [place], GERD ED COURSE: Pt is a very poor historian and is unsure why she was even brought to the ED in the first place. She states she was feeling fine. Pt states that she forgot she took her pills and ended up taking them twice. She states that her neighbor did not administer them for her. This is different than what Dr. Hurd stated. Dr. Hurd stated that her neighbor/ friend was administering the medication as 5mg BID. On the [facility] discharge summary and confirming with the pharmacy that dispensed the medication, it says that she was supposed to take 5mg daily. According to ER records the pt went to the ED because the visiting nurse noted that the pt's INR was 8. She was diagnosed with a PE 7 days ago and was discharged from the [facility] 2 days ago on Coumadin for her PE. She was also discharged on home O2, which according to hospital visits - are said to be required at all times. When asking the pt she states that she has not worn oxygen in several years. It was started several years ago for her COPD only. The patient denies any CP, SOB, ISA, or sweating. She also denies any bleeding from anywhere. Vitals:T 97.5, P 91, BP 133/ 70, 90% O2 RA Significant labs: PT 200, INR too high to report, APTT 42, Hb normal. Pt was admitted for monitoring of INR while vit K given for reversal of coumadin and to restart pt on correct dose. HOSPITAL COURSE: During the pt's stay her INR trended down. Prior to discharge her INR was 3.4. She did not have any symptoms during her stay. She required 2L O2 at all times during her stay 2/2 to her chronic COPD. Pt is supposed to be on home oxygen but states that "I haven't been on oxygen for years". Pt was prescribed O2 at all times after her recent [facility] admission for PE as well. grove worker called her medical supply who also stated that she was recently billed for a tank. She was notified that she must wear her O2 at all times until her PCP says it is not needed anymore. PCP was notified regarding the pt's admission and regarding her oxygen issue. She has an appointment scheduled with Dr. Rousseau in 2 days. She will be getting her INR drawn daily until it normalizes. Dr. Rousseau to make adjustments to warfarin based on result. Pt to be discharged on dose of 2.5mg daily of coumadin. Son to take all meds away from the pt and her home and administer daily himself. Son agrees to the plan. PCP to follow up on: INR levels and titration. Making sure only son has access to meds and administering to prevent overdose 2/ 2 to dementia. Making sure pt is compliant with O2 use. Procedures: Imaging and X-Rays 03/04/18 16:04 CXR [CHEST 2 VIEWS] [RAD] Stat Abnormal Labs: Abnormal Lab Results 03/03/18 03/03/18 03/03/18 Range/Units 13:44 13:44 13:44 MCHC 31.9 L (32-36) g/dl PT 200.0 H* (9.5-12.1) SECONDS APTT 42.0 H (24.5-39.1) SECONDS Creatinine 1.1 H (0.5-0.9) mg/dL Random Glucose 116 H (74-109) mg/dL 03/04/18 03/04/18 03/05/18 Range/Units 06:19 06:19 06:00 MCHC 31.6 L (32-36) g/dl PT 20.1 H 21.2 H (9.5-12.1) SECONDS APTT (24.5-39.1) SECONDS Creatinine (0.5-0.9) mg/dL Random Glucose (74-109) mg/dL 03/06/18 03/07/18 Range/Units 05:50 06:30 MCHC (32-36) g/dl PT 40.3 H* 33.5 H (9.5-12.1) SECONDS APTT (24.5-39.1) SECONDS Creatinine (0.5-0.9) mg/dL Random Glucose (74-109) mg/dL Condition at Discharge: (2) Stable VTE Discharge VTE Reason For No Overlap Therapy: Contraindicated (already on coumadin) Discharge Medications - Discharge Medications Prescriptions: Warfarin Sodium 2.5 mg PO DAILY #30 tablet Home Medications: Ambulatory Orders Fosinopril Sodium [Monopril] 20 mg PO DAILY 11/20/15 [Last Taken 08/20/16] Metoprolol Succinate [Toprol Xl] 100 mg PO DAILY 11/20/15 [Last Taken 08/20/16] Oxybutynin Chloride [Ditropan] 5 mg PO TID 11/20/15 [Last Taken 08/20/16] Donepezil HCl 5 mg PO DAILY 02/24/18 [Last Taken Unknown] Warfarin Sodium 2.5 mg PO DAILY #30 tablet 03/07/18 [Last Taken Unknown] Discharge Plan - Discharge Instructions Activity at Discharge: Increase Activity as Tolerated, Wear Oxygen At All Times Diet at Discharge: Advance to Usual Diet Additional Instructions: Appointment with Dr. Rousseau Friday 03/09 at 11:00AM Take 2.5mg warfarin once per day. Start tomorrow (all your meds were given for today) Give all your medications to your some to make sure that you are getting your medications accurately. Do not keep any medications in your house. Get your INR drawn by home nursing tomorrow. Quality Measures - Quality Measures Quality Measures: Advance Directives, Documentation of Current Medications in Medical Record, Elder Maltreatment Screen and Follow-Up Plan, Screening for High Blood Pressure and F/U Documented - Current Medications Quality Measure: Measure #130: Documentation of Current Medications Documentation of Current Medications: <Current Medications Documented/Reviewed> [[id number]] - Blood Pressure Screening Quality Measure: Screening for High Blood Pressure and Follow-Up Documented Does Patient Have Any of the Following: No Blood Pressure Classification: Pre-Hypertensive BP Reading Systolic Measurement: 133 Diastolic Measurement: 70 Screening for High Blood Pressure: Patient Exclusion, Hx of HTN [G9744] - Advance Directives Quality Measure: Measure #47: Care Plan Advance Directives Established: No Advance Directives Information Provided To Patient: No Advance Directives on File: No Living Will: No Power of Studio Owner: No Advance Care Planning: <Care Plan/Decision Maker Documented; Discussed & Documented> [[id number]] - Elder Abuse Suspicion Index Screening: Elder Abuse Suspicion Index Screening Rely on people for bathing, dressing, shopping, banking, etc: No Prevented from getting food, clothes, medication, etc: No Made to feel shamed or threatened by someone: No Forced to sign papers or use money against will: No Feel afraid, touched in ways not wanted or hurt physically: No Poor eye contact, withdrawn, malnourished, cuts or bruises: No Screening Result: Negative result EASI Reference Information: Meng ABRAHAM, Inocencia C, Mariah D, Alex Marroquin.Development and validation of a tool to assist physicians identification of elder abuse: The Elder Abuse Suspicion Index (EASI ). Journal of Elder Abuse and Neglect, 2008; 20 (3): 276-300. - Elder Maltreatment Screen Quality Measures: Elder Maltreatment Screen and Follow-Up Plan Elder Maltreatment Screen: <Negative, No Follow-Up Plan Required> [[id number]]
== END 2018-03-07 13:10 | disposition home health service (06) | DRG 918 ==
LOC: ER 15:20 → MEDSURG 17:47 → OBSVTOIN 03-04 09:59
PROVIDERS: ADMIT Internal Medicine; ATTEND Internal Medicine
DX: T45.511A Poisoning by anticoagulants, accidental (unintentional), initial encounter (principal); D68.8 Other specified coagulation defects; J44.9 Chronic obstructive pulmonary disease, unspecified; Z86.711 Personal history of pulmonary embolism; Z79.01 Long term (current) use of anticoagulants; Z86.718 Personal history of other venous thrombosis and embolism; I10 Essential (primary) hypertension; F03.90 Unspecified dementia, unspecified severity, without behavioral disturbance, psychotic disturbance, mood disturbance, and anxiety; Z87.891 Personal history of nicotine dependence
CPT/HCPCS: 71046; 80048; 85025; 85610; 85730; 90670; 94760; 99221; 99233; 99239; 99285